=== PATIENT | male | born 1985 | race Caucasian/White ===

== ENCOUNTER 2017-02-15 12:42 | Outpatient (CLI) | payer BC ==
--- NOTE | 2017-02-15 15:53 | MRI ---
LEFT KNEE MRI WITHOUT IV CONTRAST: History: 31-year-old male with left knee pain for several years. Technique: Multiplanar, multisequence MRI examination of the left knee is performed. FINDINGS: No significant abnormal joint effusion. There is a parrot beak type tear involving the anterior horn of the medial meniscus with a small flap component. There is an irregular slightly oblique radial t ype tear involving the anterior body of the lateral meniscus with very considerable intrasubstance a nd intrameniscal cystic change involving the overall size of the parameniscal component measuring ap proximately 0.7 cm transversely and 2.5 cm in AP and approximately 1.l cm in the craniocaudal dimens ion. The medial and lateral menisci and anterior and posterior cruciate ligaments and quadriceps and patellar tendons appear intact. No acute osteochondral defect. No significant abnormal marrow signa l. IMPRESSION: Parrot beak type tear involving the anterior horn of the medial meniscus. Oblique radial tear involv ing the anterior horn, anterior body junction of the lateral meniscus with considerable intramenisca l as well as some prominent parameniscal cystic changes. No evidence for other significant acute int ernal derangement. POS: [facility]
== END 2017-02-15 12:43 | disposition home or self-care (01) ==
LOC: SCSMRI 12:42
PROVIDERS: ATTEND Orthopaedic Surgery
DX: M25.562 Pain in left knee (principal); S83.242A Other tear of medial meniscus, current injury, left knee, initial encounter; S83.282A Other tear of lateral meniscus, current injury, left knee, initial encounter

== ENCOUNTER 2017-04-05 15:17 | Outpatient (CLI) | payer BC | END 2017-04-05 15:18 | disposition home or self-care (01) | LOC: LABBT 15:17 | PROVIDERS: ATTEND Orthopaedic Surgery | DX: Z01.818 Encounter for other preprocedural examination (principal); S83.207A Unspecified tear of unspecified meniscus, current injury, left knee, initial encounter ==

== ENCOUNTER 2017-04-07 05:54 | Day surgery (SDC) | payer BC ==
[2017-04-05 15:39] VITALS: BMI 33.6
[2017-04-07] MEDS ORDERED: CEFAZOLIN/Water 2 GM/20 ML SYRINGE ONE (06:02)
[2017-04-07] MEDS ORDERED: Fentanyl 100 MCG/2 ML VIAL ONE ×3 (06:13→09:24)
[2017-04-07] MEDS ORDERED: Midazolam HCl 2 mg/2 ml Vial ONE ×2 (06:13→07:34)
[2017-04-07] MEDS ORDERED: Diprivan 20 ML ONE (06:32)
--- NOTE | 2017-04-07 09:38 | OP ---
DATE OF PROCEDURE: 04/07/2017 PREOPERATIVE DIAGNOSES: Left knee lateral meniscal tear and parameniscal cyst lateral meniscus. POSTOPERATIVE DIAGNOSES: Left knee lateral meniscal tear and parameniscal cyst lateral meniscus. PROCEDURES PERFORMED: 1. Left knee arthroscopy with partial lateral meniscectomy. 2. Open removal of parameniscal degenerative tissue. SURGEON: Haider Norton M.D. JOB ORDER CLERK: Jamie Pack PA-C. BLOOD LOSS: Minimal. COMPLICATIONS: None. ANESTHESIA: He had general anesthetic and he also had a local knee block. DISPOSITION: He did go to the recovery room in stable condition. INDICATIONS: A 31-year-old male who comes in complaining of left knee pain, swelling, catching and a large cystic structure which increases in size with activity. At this time, he opted for surgery. DESCRIPTION OF PROCEDURE: After appropriate consent forms were explained and signed, the patient was taken back to the operating room and at this time was given general anesthetic. Once anesthesia was appropriate, the tourniquet was placed on the left thigh and leg was placed in an arthroscopic leg h older. It was then prepped and draped in standard surgical fashion. Limb was exsanguinated and tour niquet was taken to 300 mmHg. An inferolateral portal was established and the scope was placed into the knee joint. Needle localization technique was used to make a medial working portal. Diagnostic arthroscopy commenced in the notch. ACL and PCL were probed and found to be intact. Medial compartm ent was probed and found to be intact. The lateral compartment was evaluated and other than a radial type tear in the body of the meniscus was intact. Partial meniscectomy was performed with meniscal biter and shaver. Patellofemoral joint was good. Gutters were swept through. In the lateral gutter , we used a needle to localize the prominent area visualized in the gutter. We then removed the scop e and drained the knee. We then had the knee flexed, made a 3 cm incision centered over the needle d own through skin only. Bovie was used to coagulate any brisk venous bleeding. We then removed our s uperficial fascia. We then got down to the IT band. IT band was split in line with its fibers and p rominent tissue was noted. Upon palpation of the prominent tissue, it was felt that this was the men iscus itself and was sitting on top of the tibia and we then made a small arthrotomy into the joint c onfirming the superior portion of the meniscus itself. We then cutdown directly into the prominence laterally and this ended up being antral meniscal degenerative tissue that is split open upon opening the most outer portion and this tissue was also yellow in color. Sharp dissection was used to remov e the central portion of this. We then thoroughly irrigated and dried. At this point, we felt that we had enough to try to stimulate a robust scarring of this and 3 interrupted #1 Ethibond sutures wer e placed as of closing down the horizontal cleavage meniscal tear. Once this was done, we then used some Vicryl sutures to close up our capsular incision followed by irrigating again. We then closed o ur IT band, fascial tissue and then the skin. Portals were closed with simple nylon stitch. Bulky s terile dressing was applied and the tourniquet let down. Toes pinked up nicely. The patient was debbie kened and taken to recovery in stable condition. All counts were correct at the end of the case. He received preoperative IV antibiotics.
[2017-04-07] MEDS ORDERED: HYDROcodone/Acetaminophen 5/325 mg Tablet ONE ×2 (10:46→11:38)
[2017-04-07] MEDS ORDERED: Bupivacaine PF 0.5% 30 ML VIAL ONE (14:55)
[2017-04-07] MEDS ORDERED: Lidocaine 2% w/Epinephrine 1:200K 20 ML VIAL ONE (14:55)
[2017-04-07] MEDS ORDERED: Lidocaine 1% PF 5 ML VIAL ONE (15:44)
[2017-04-07] MEDS ORDERED: Ketorolac Tromethamine 30 MG/ML VIAL ONE (15:44)
[2017-04-07] MEDS ORDERED: Ondansetron HCl/PF 4 MG/2 ML Vial ONE (15:44)
[2017-04-07] MEDS ORDERED: Propofol 200 MG/20 ML VIAL ONE (15:44)
== END 2017-04-07 12:20 ==
LOC: SDC 05:54
PROVIDERS: ATTEND Orthopaedic Surgery
PROC: 0SBD4ZZ Excision of Left Knee Joint, Percutaneous Endoscopic Approach (ICD-10-PCS; principal; 2017-04-07)
DX: S83.282A Other tear of lateral meniscus, current injury, left knee, initial encounter (principal); M23.062 Cystic meniscus, other lateral meniscus, left knee; Z98.818 Other dental procedure status
CPT/HCPCS: 96374; G8978-GP-CI; G8979-GP-CI; G8980-GP-CI; J1885; J2001; J2250; J2405; J2704; J3010; S0020

== ENCOUNTER 2017-11-24 08:06 | Outpatient (CLI) | payer OTHER ==
--- NOTE | 2017-11-24 11:22 | MRI ---
LEFT KNEE MRI WITHOUT IV CONTRAST: HISTORY: A 31-year-old male with a history of left knee pain, unspecified chronicity. Prior left knee arthros copic surgery since prior exam, 02/15/2017. FINDINGS: There are postoperative changes involving the lateral collateral ligament complex region. There is a very small focus of free edge irregularity involving the posterior horn, within approximately 1 cm o f the posterior root, evidence for a small free edge tear, which was not present on the prior study. There are postop partial meniscectomy changes involving the body and extending into the anterior hor n of the lateral meniscus. There is some peristent intrameniscal fluid, evidence for intrameniscal c yst. The large previously noted parameniscal cyst has been removed. The previously noted flap near of the anterior horn of the medial meniscus is no longer evident. Anterior and posterior cruciate li gaments, medial collateral ligament complex, and quadriceps and patellar tendons are unremarkable. N o evidence for acute osteochondral defect. IMPRESSION: 1. Very small focus of free edge irregularity of the posterior horn of the lateral meniscus within a pproximately 1 cm of the posterior root, new from prior study, consistent with a small free edge tear . 2. Postoperative partial meniscal repair changes, particularly involving the body and anterior horn of the lateral meniscus with some very minimal residual intrasubstance fluid, but with resolution of the previously noted large parameniscal cystic collection, with extensive postoperative changes in th e region of the lateral collateral ligamentous complex. 3. Resolution of the previously noted flap tear of the anterior horn of the medial meniscus. 4. No evidence for other significant acute internal derangement. POS: [facility]
== END 2017-11-24 08:07 | disposition home or self-care (01) ==
LOC: TBSIIMAG 08:06
PROVIDERS: ATTEND Orthopaedic Surgery
DX: M25.562 Pain in left knee (principal); Z98.890 Other specified postprocedural states

== ENCOUNTER 2019-06-12 19:58 | Emergency (ER) | payer OTHER ==
[2019-06-12] MEDS ORDERED: Adacel (T-DAP) 0.5 ML SYRINGE ONE ×2 (20:00→20:03)
[2019-06-12] MEDS ORDERED: Lidocaine 1% w/Epinephrine 1:100K 20 ML VIAL ONE (20:12)
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
[2019-06-12] MEDS ORDERED: Bacitracin 1 PK ONE (20:52)
== END 2019-06-12 21:07 | disposition home or self-care (01) ==
LOC: EEVIPCON 19:58 → ERS 19:58
DX: S51.801A Unspecified open wound of right forearm, initial encounter (principal); Z23 Encounter for immunization; W34.00XA Accidental discharge from unspecified firearms or gun, initial encounter; Y99.0 Civilian activity done for income or pay
CPT/HCPCS: 12002; 90471; 90715; 96365; J0690

== ENCOUNTER 2023-01-30 14:32 | Outpatient (CLI) | payer BC | END 2023-01-30 14:33 | disposition home or self-care (01) | LOC: ULT 14:32 | PROVIDERS: ATTEND Specialist | DX: J45.901 Unspecified asthma with (acute) exacerbation (principal); R06.02 Shortness of breath | CPT/HCPCS: 93306 ==

== ENCOUNTER 2023-02-01 13:27 | Outpatient (CLI) | payer BC | END 2023-02-01 13:28 | disposition home or self-care (01) | LOC: CT 13:27 | PROVIDERS: ATTEND Specialist | DX: J45.901 Unspecified asthma with (acute) exacerbation (principal); R06.02 Shortness of breath; R06.00 Dyspnea, unspecified | CPT/HCPCS: 71250 ==

== ENCOUNTER 2024-12-10 14:50 | Outpatient (CLI) | payer OTHER | END 2024-12-10 14:51 | disposition home or self-care (01) | LOC: BICRAD 14:50 | PROVIDERS: ATTEND Nurse Practitioner Family | DX: Z02.6 Encounter for examination for insurance purposes (principal); S90.31XA Contusion of right foot, initial encounter ==